=== PATIENT | female | born 1945 | race Caucasian/White ===

== ENCOUNTER → 2018-10-01 | Day surgery (SDC) | payer MEDICARE ==
[2018-09-25 14:46] VITALS: BMI 39.4
[~2018-10-01] MED LIST: LACTATED RINGERS 1,000 ML IV SCH; LIDOCAINE 1% 20 ML VIAL (10MG/ML) FOR IV START INTRADERMA ONE; PROPOFOL 10 MG/ML 20 ML VIAL IV ONE
--- NOTE | 2018-10-01 06:02 | P.GSHP ---
History of Present Illness H&P Date: 10/01/18 CHIEF COMPLAINT: Colon screen HISTORY OF PRESENT ILLNESS: The patient is a 73-year-old female who presents for colon screen. Lower endoscopy was offered for further evaluation and management. PAST MEDICAL HISTORY: Please see list. PAST SURGICAL HISTORY: Please see list. MEDICATIONS: Please see list. ALLERGIES: Please see list. SOCIAL HISTORY: No illicit drug use FAMILY HISTORY: No reports of Crohn disease or ulcerative colitis. REVIEW OF ORGAN SYSTEMS: CONSTITUTIONAL: No reports of fevers or chills. PHYSICAL EXAM: VITAL SIGNS: Stable GENERAL: Well-developed pleasant in no acute distress. HEENT: No scleral icterus. Extraocular movements grossly intact. Moist buccal mucosa. NECK: Supple without lymphadenopathy. CHEST: Unlabored respirations. Equal bilateral excursions. CARDIOVASCULAR: Regular rate and rhythm. Distal 2+ pulses. ABDOMEN: Soft, nontender, nondistended. MUSCULOSKELETAL: No clubbing, cyanosis, or edema. ASSESSMENT: 1. Colon screen. PLAN: 1. Recommend proceeding with a lower endoscopy Past Medical History Past Medical History: Cancer, Diabetes Mellitus, Hyperlipidemia, Hypertension Additional Past Medical History / Comment(s): hx migraines, hiatal hernia, skin cancer, bakers cyst behind left knee, neuropathy dorothea feet History of Any Multi-Drug Resistant Organisms: None Reported Past Surgical History: Section, Cholecystectomy, Heart Catheterization With Stent Additional Past Surgical History / Comment(s): 3 cardiac stents, Past Anesthesia/Blood Transfusion Reactions: Motion Sickness Date of Last Stent Placement:: 2016 Smoking Status: Former smoker - Past Family History Mother Family Medical History: No Reported History Medications and Allergies Home Medications Medication Instructions Recorded Confirmed Type Aspirin [Adult Low Dose Aspirin EC] 81 mg PO DAILY 09/25/18 09/25/18 History Atenolol 25 mg PO QAM 09/25/18 09/25/18 History Atorvastatin [Lipitor] 40 mg PO W/SUPPER 09/25/18 09/25/18 History Clopidogrel Bisulfate [Plavix] 75 mg PO DAILY 09/25/18 09/25/18 History Fexofenadine HCl [Madeline Allergy] 180 mg PO W/SUPPER 09/25/18 09/25/18 History Hydrochlorothiazide [Hydrodiuril] 25 mg PO DAILY 09/25/18 09/25/18 History Insulin Degludec/Liraglutide 50 unit SQ QAM 09/25/18 09/25/18 History [Xultophy 100 Unit-3.6MG/ml Pen] Lisinopril [Prinivil] 10 mg PO DAILY 09/25/18 09/25/18 History Repaglinide [Prandin] 1 mg PO AC-TID 09/25/18 09/25/18 History metFORMIN HCL 1,000 mg PO BID 09/25/18 09/25/18 History sitaGLIPtin PHOSPHATE [Januvia] 100 mg PO DAILY 09/25/18 09/25/18 History Allergies Allergy/AdvReac Type Severity Reaction Status Date / Time ciprofloxacin [From Cipro] Allergy Rash/Hives Verified 09/25/18 14:32 Sulfa (Sulfonamide Allergy Rash/Hives Verified 09/25/18 14:32 Antibiotics)
[2018-10-01 08:52] VITALS: TEMP 96.9
[2018-10-01 09:01] LABS: Glucose,Whole Blood 117 mg/dL (75-99)
--- NOTE | 2018-10-01 10:02 | P.PCN ---
Date of Procedure: 10/01/18 Description of Procedure: PREOPERATIVE DIAGNOSIS: Colonoscopy screening. Family history of colon cancer POSTOPERATIVE DIAGNOSIS: Colonoscopy screening. Family history of colon cancer Severe sigmoid diverticulosis Poor prep Cecal volvulus Internal hemorrhoids grade 2 OPERATION: Colonoscopy to the ascending colon SURGEON: Jada Boo MD. ANESTHESIA: MAC. INDICATIONS: The patient is a 73-year-old female who presents for colonoscopy screening. Last colonoscopy between 10 years ago. Benefits and risks were described and informed consent was obtained. DESCRIPTION OF PROCEDURE: The patient had undergone Gatorade, MiraLAX and Dulcolax prep. She had been brought into the operating room and laid in the left lateral decubitus position. After adequate intravenous sedation, the rectum was examined with 2% lidocaine jelly. No external hemorrhoids were encountered. The rectal tone was within no rmal limits. No lesions were palpated in the rectal vault. An Olympus colonoscope was advanced to the ascending colon where redundancy of the cecum was found highly suspicious for intermitent cecal volvulus. The prep was fair to poor with over 650 mL of effluent suctioned. Severe sigmoid diverticulosis was encountered. No large colonic polyps were found secondary to limited view from moderate liquid stools and semisolid stool. No evidence of focal colitis was found. Retroflexion of the scope demonstrated grade 2 internal hemorrhoids without active bleeding or inflammation. The colon was desufflated. The patient had tolerated the procedure well. Withdrawal time was over 6 minutes. FINDINGS: [place] preparation quality scale 3 fair (1-5), limiting complete view of the colonic mucosa Internal hemorrhoids, grade 2 No external prolapsed hemorrhoids. No arteriovenous malformations. No large adenomatous polyps. No focal colitis. Moderate redundancy of cecum highly suspicious for cecal volvulus RECOMMENDATIONS: Lower endoscopy in 5 years, 2023 otherwise Cologaurd secondary to family history of colon cancer Plan - Discharge Summary Discharge Rx Participant: No New Discharge Prescriptions: No Action Clopidogrel Bisulfate [Plavix] 75 mg PO DAILY Atenolol 25 mg PO QAM Insulin Degludec/Liraglutide [Xultophy 100 Unit-3.6MG/ml Pen] 50 unit SQ QAM Atorvastatin [Lipitor] 40 mg PO W/SUPPER Repaglinide [Prandin] 1 mg PO AC-TID Fexofenadine HCl [Madeline Allergy] 180 mg PO W/SUPPER Aspirin [Adult Low Dose Aspirin EC] 81 mg PO DAILY metFORMIN HCL 1,000 mg PO BID Lisinopril [Prinivil] 10 mg PO DAILY sitaGLIPtin PHOSPHATE [Januvia] 100 mg PO DAILY Hydrochlorothiazide [Hydrodiuril] 25 mg PO DAILY Discharge Medication List Aspirin [Adult Low Dose Aspirin EC] 81 mg PO DAILY 09/25/18 [History] Atenolol 25 mg PO QAM 09/25/18 [History] Atorvastatin [Lipitor] 40 mg PO W/SUPPER 09/25/18 [History] Clopidogrel Bisulfate [Plavix] 75 mg PO DAILY 09/25/18 [History] Fexofenadine HCl [Madeline Allergy] 180 mg PO W/SUPPER 09/25/18 [History] Hydrochlorothiazide [Hydrodiuril] 25 mg PO DAILY 09/25/18 [History] Insulin Degludec/Liraglutide [Xultophy 100 Unit-3.6MG/ml Pen] 50 unit SQ QAM 09/25/18 [History] Lisinopril [Prinivil] 10 mg PO DAILY 09/25/18 [History] Repaglinide [Prandin] 1 mg PO AC-TID 09/25/18 [History] metFORMIN HCL 1,000 mg PO BID 09/25/18 [History] sitaGLIPtin PHOSPHATE [Januvia] 100 mg PO DAILY 09/25/18 [History] Follow up Appointment(s)/Referral(s): Jada Boo MD [STAFF PHYSICIAN] - As Needed Ambulatory/Diagnostic Orders: Miscellaneous Radiology Order [RAD.AMB] Time Frame: 2 Weeks, Facility: [facility], Location: [facility] Patient Instructions/Handouts: Diverticulosis Diet (GEN), Diverticulosis (GEN) Activity/Diet/Wound Care/Special Instructions: Repeat colonoscopy in 5 years, 2023. Recommend Cologaurd Discharge Disposition: HOME SELF-CARE
[2018-10-01 10:08] VITALS: BP 113/65; PULSE 59; RESP 17
[2018-10-01 10:11] LABS: Glucose,Whole Blood 112 mg/dL (75-99)
--- NOTE | 2018-10-01 15:31 | XR ---
Abdomen HISTORY: Failed colonoscopy, cecal volvulus Frontal view of the abdomen on 3 images There are air-filled loops of small and large bowel present. No evident bowel obstruction. Colon is r edundant. Degenerative disc changes are present in the visualized spine. No pneumoperitoneum. Surgica l clips present right upper quadrant. IMPRESSION: Post colonoscopy findings.
== END | disposition home or self-care (01) ==
LOC: ORWHC2ENDO 08:30
PROVIDERS: ATTEND Surgery Plastic and Reconstructive Surgery
DX: Z12.11 Encounter for screening for malignant neoplasm of colon (principal); K57.30 Diverticulosis of large intestine without perforation or abscess without bleeding; K56.2 Volvulus; K64.1 Second degree hemorrhoids; I10 Essential (primary) hypertension; E78.5 Hyperlipidemia, unspecified; E11.42 Type 2 diabetes mellitus with diabetic polyneuropathy; G43.909 Migraine, unspecified, not intractable, without status migrainosus; I25.10 Atherosclerotic heart disease of native coronary artery without angina pectoris; Z85.828 Personal history of other malignant neoplasm of skin; Z87.891 Personal history of nicotine dependence; Z95.5 Presence of coronary angioplasty implant and graft; Z80.0 Family history of malignant neoplasm of digestive organs; Z79.02 Long term (current) use of antithrombotics/antiplatelets; Z79.82 Long term (current) use of aspirin; Z79.4 Long term (current) use of insulin; Z79.899 Other long term (current) drug therapy; Z88.1 Allergy status to other antibiotic agents; Z88.2 Allergy status to sulfonamides
CPT/HCPCS: 74018; J2704; G0105; 45378

== ENCOUNTER → 2018-10-02 | Outpatient (CLI) | payer MEDICARE ==
--- NOTE | 2018-10-02 17:14 | FL ---
EXAMINATION TYPE: FL barium enema DATE OF EXAM: 10/02/2018 CLINICAL HISTORY: 73-year-old female cecal volvulus, colonoscopy yesterday showing marked redundancy of the cecum and likely intermittent cecal volvulus. TECHNIQUE: A single contrast barium enema study is performed. Total fluoroscopy time: 2 minutes 9 seconds. Total images: 58 COMPARISON: None. 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 Cholecystectomy clips. Thin liquid barium is administered into the colon. There is generalized colonic diverticulosis though greater in the sigmoid colon. No fixed annular annabel rowing is identified. The transverse colon is redundant. The ascending colon and cecum are even more redundant and the cecu m is positioned medially and anteriorly. However, on the postevacuation radiographs when the colon is decompressed, the cecum demonstrates a more normal position. IMPRESSION: 1. Note single contrast study due to persistent prominent retained air throughout the colon. 2. Generalized colonic diverticulosis, greatest in the sigmoid colon. 3. Redundant transverse colon but even more redundant cecum and ascending colon. Prominent air and co ntrast distention shows the cecum positioned anteriorly and medially. No obstruction or suspicious an nular narrowing. 4. However, on the postevacuation radiographs, with the colon decompressed, the cecum has a more norm al orientation.
== END ==
LOC: RADFLMAIN 08:35
PROVIDERS: ATTEND Surgery Plastic and Reconstructive Surgery
DX: K57.30 Diverticulosis of large intestine without perforation or abscess without bleeding (principal)
CPT/HCPCS: 74270